=== PATIENT | male | born 1995 | race Caucasian/White ===

== ENCOUNTER 2025-04-07 20:36 | Emergency (ER) | payer OTHER ==
[~2025-04-07] VITALS: Ht 188 cm; Wt 68.0 kg
[2025-04-07] MEDS ORDERED: NS 1,000 ML IV SCH (21:50)
[2025-04-07] MEDS ORDERED: Ondansetron HCl 2 MG / ML 2ML Vial IV ONE (21:50)
[2025-04-07 22:00] LABS: BASOPHILS ABSOLUTE AUTO 0.04 K/mm3 (0.00-0.23); BASOPHILS PERCENT AUTO 1 % (0-2); EOSINOPHILS ABSOLUTE AUTO 0.04 K/mm3 (0.00-0.68); EOSINOPHILS PERCENT AUTO 1 % (0-6); Hematocrit 46.0 % (37.0-53.0); Hemoglobin 16.4 g/dL (13.5-17.5); Mean Corpuscular HGB Conc 35.7 g/dL (31.5-36.5); Mean Corpuscular Volume 91 fL (80-100); NRBC ABSOLUTE 0.00 K/mm3 (0.00-0.02); NRBC Auto 0.0 /100 WBC (0.0-0.2); RDW Coefficient Variation 11.4 % (11.7-14.2); RDW Standard Deviation 38.3 fL (35.1-46.3)
[2025-04-07 22:03] LABS: IMMATURE GRAN ABSOLUTE AUTO 0.03 K/mm3 (0.00-0.10); IMMATURE GRAN PERCENT AUTO 1 % (0-1); LYMPHOCYTES ABSOLUTE AUTO 1.53 K/mm3 (0.84-5.20); LYMPHOCYTES PERCENT AUTO 28 % (21-46); MONOCYTES ABSOLUTE AUTO 0.63 K/mm3 (0.16-1.47); MONOCYTES PERCENT AUTO 11 % (4-13); NEUTROPHILS ABSOLUTE AUTO 3.24 K/mm3 (1.96-9.15); NEUTROPHILS PERCENT AUTO 59 % (41-73)
[2025-04-07 22:08] LABS: Alanine Aminotransfer (ALT/SGP 223.0 U/L (12-78); Albumin, Blood 3.9 g/dL (3.4-5.0); Albumin/Globulin Ratio 1.0 (0.8-1.8); Anion Gap 7.0 mmol/L (3-11); Aspartate Aminotrans (AST/SGOT 182.0 U/L (12-37); Bilirubin, Total 0.8 mg/dL (0.1-1.0); Blood Urea Nitrogen 10.0 mg/dL (8-24); CO2, Blood 31.0 mmol/L (21-32); Calcium, Blood 8.6 mg/dL (8.5-10.1); Chloride, Blood 97.0 mmol/L (98-108); Creatinine, Blood 0.97 mg/dL (0.60-1.20); Globulin, Blood 4.1 g/dL (2.2-4.0); Glucose, Blood 95.0 mg/dL (70-99); Potassium, Blood 3.2 mmol/L (3.5-5.5); Sodium, Blood 132.0 mmol/L (136-145); Total Protein, Blood 8.0 g/dL (6.4-8.2)
[2025-04-07] MEDS ORDERED: Lidocaine 2% Viscous Soln 15 ML UDC PO ONE (22:10)
[2025-04-07] MEDS ORDERED: Atropine/Scopalam/Hyoscam/PB 5 ML UDC PO ONE (22:10)
[2025-04-07] MEDS ORDERED: Lidocaine/Tetracaine/Epinephr 3 ML GEL SYRINGE TOP ONE (22:35)
[2025-04-07] MEDS ORDERED: Potassium Chl 10MEQ/Water100ML 100 ML IV ONE (22:40)
[2025-04-07] MEDS ORDERED: RX Prepack 2 Tabs Ondansetron ODT 4MG UD ONE (23:45)
[2025-04-07] MEDS ORDERED: ONDA4ODT MM (23:49)
== END 2025-04-08 00:17 | disposition home or self-care (01) ==
LOC: ER 20:36
PROVIDERS: Student in an Organized Health Care Education/Training Program
DX: A08.4 Viral intestinal infection, unspecified (principal); E86.0 Dehydration; E87.8 Other disorders of electrolyte and fluid balance, not elsewhere classified; R74.9 Abnormal serum enzyme level, unspecified
CPT/HCPCS: 80053; 85025; 96361; 96374; 99284-25; A9270; J2405; J3480; J7030